=== PATIENT | male | born 2000 | race African-American/Black ===

== ENCOUNTER 2021-10-21 13:20 | Emergency (ER) | payer SELFPAY ==
--- NOTE | 2021-10-21 14:00 | EDPHYS ---
Physician Documentation [facility] Name: Leo Vazquez Age: 21 yrs Sex: Male : 2000 Arrival Date: 10/21/2021 Time: 13:24 Bed Waiting Private MD: ED Physician Dixon Britton HPI: 10/21 13:56 This 21 yrs old Black Male presents to ER via Ambulatory with complaints of Ear Pain. pm1 13:56 The patient presents with pain. The complaints affect the right ear. Onset: The pm1 symptoms/episode began/occurred yesterday. Modifying factors: the symptoms are aggravated by nothing. Associated signs and symptoms: Pertinent negatives: fever. Severity of symptoms: in the emergency department the symptoms are worse. The patient has not experienced similar symptoms in the past. The patient has not recently seen a physician. Patient went swimming yesterday and apparently got water stuck in his ear. Patient attempted to remove water from his right ear by using a Q-tip. Patient reports that he feels like his ear canal is swelling and has decreased hearing. Historical: - Allergies: 13:44 No Known Allergies; ss - Home Meds: 13:44 None [Active]; ss - PMHx: 13:44 None; ss - PSHx: 13:44 None; ss - Immunization history:: Adult Immunizations up to date, Client reports receiving the 2nd dose of the Covid vaccine. - Social history:: Smoking status: Reported history of juuling and/or vaping. ROS: 13:56 Constitutional: Negative for fever, chills, and weight loss. pm1 13:56 Cardiovascular: Negative for chest pain, palpitations, and edema, Respiratory: Negative for shortness of breath, cough, wheezing, and pleuritic chest pain. 13:56 ENT: Positive for ear pain, Negative for drainage from ear(s). 13:56 All other systems are negative. Exam: 13:56 Constitutional: This is a well developed, well nourished patient who is awake, alert, pm1 and in no acute distress. Head/Face: Normocephalic, atraumatic. 13:56 ENT: External ear(s): are unremarkable, Ear canal(s): cerumen impaction, that is moderate, occluding the right ear canal, swelling, of the right canal, Mild, TM's: not visable, because of cerumen, Examination of the other ear shows no obvious abnormality. 13:56 Neuro: Exam negative for Orientation: is normal, Motor: moves all fours. Vital Signs: 13:43 BP 130 / 71; Pulse 75; Resp 14; Temp 98.3(TE); Pulse Ox 100% on R/A; Weight 90.72 kg; ss Height 6 ft. 0 in. (182.88 cm); Pain 8/10; 13:43 Body Mass Index 27.12 (90.72 kg, 182.88 cm) ss MDM: 13:52 Patient medically screened. pm1 13:56 Data reviewed: vital signs. Data interpreted: Pulse oximetry: on room air is 100 %. pm1 Interpretation: normal. Counseling: I had a detailed discussion with the patient and/or guardian regarding: the historical points, exam findings, and any diagnostic results supporting the discharge/admit diagnosis, the need for outpatient follow up, an ENT specialist, a family practitioner, to return to the emergency department if symptoms worsen or persist or if there are any questions or concerns that arise at home. 14:05 ED course: [place] reviewed. pm1 Administered Medications: No medications were administered Disposition: 15:23 Co-signature as Attending Physician, Dixon Britton MD I agree with the assessment and kdr plan of care. Disposition Summary: 10/21/21 13:59 Discharge Ordered Location: Home pm1 Problem: new pm1 Symptoms: have improved pm1 Condition: Stable pm1 Diagnosis - Unspecified otitis externa, right ear pm1 Followup: pm1 - With: Emergency Department - When: As needed - Reason: Worsening of condition Followup: pm1 - With: Private Physician - When: 2 - 3 days - Reason: Recheck today's complaints, Continuance of care, Re-evaluation by your physician Discharge Instructions: - Discharge Summary Sheet pm1 - Ear Drops, Adult pm1 - Otitis Externa pm1 Forms: - Medication Reconciliation Form pm1 - Thank You Letter pm1 - Antibiotic Education pm1 - Prescription Opioid Use pm1 Prescriptions: - Hydrocortisone/neomycin/polymyxin otic suspension 10 mg (1%) / 3.5 mg (0.35%) / 10,000 units / 10 mL - instill 4 drop by OTIC route every 6 hours As needed; 10 milliliter; Refills: pm1 0, Product Selection Permitted - Tramadol 50 mg Oral Tablet - take 1 tablet by ORAL route every 8 hours as needed; 12 tablet; Refills: 0, pm1 Product Selection Permitted Signatures: Dixon Britton MD MD kdr Smirch, Shelby, EDOUARD RN ss Leo Fermin, FAMILY CENTERED SPECIALIST FAMILY CENTERED SPECIALIST pm1
--- NOTE | 2021-10-21 14:00 | ER ---
Nurse's Notes [facility] Name: Leo Vazquez Age: 21 yrs Sex: Male : 2000 Arrival Date: 10/21/2021 Time: 13:24 Bed Waiting Private MD: Diagnosis: Unspecified otitis externa, right ear Presentation: 10/21 13:43 Chief complaint: Patient states: R ear pain that began yesterday. Coronavirus screen: ss Client denies travel out of the [place] in the last 14 days. Ebola Screen: Patient denies exposure to infectious person. Patient denies travel to an Ebola-affected area in the 21 days before illness onset. Initial Sepsis Screen: Does the patient meet any 2 criteria? No. Patient's initial sepsis screen is negative. Does the patient have a suspected source of infection? No. Patient's initial sepsis screen is negative. Risk Assessment: Do you want to hurt yourself or someone else? Patient reports no desire to harm self or others. Onset of symptoms was October 20, 2021. 13:43 Method Of Arrival: Ambulatory ss 13:43 Acuity: JAYLIN 5 ss Historical: - Allergies: 13:44 No Known Allergies; ss - Home Meds: 13:44 None [Active]; ss - PMHx: 13:44 None; ss - PSHx: 13:44 None; ss - Immunization history:: Adult Immunizations up to date, Client reports receiving the 2nd dose of the Covid vaccine. - Social history:: Smoking status: Reported history of juuling and/or vaping. Screenin:55 Abuse screen: Denies threats or abuse. Denies injuries from another. Nutritional ss screening: No deficits noted. Tuberculosis screening: Never had TB. Fall Risk None identified. Assessment: 13:55 General: Appears in no apparent distress. comfortable, Behavior is calm, cooperative, ss Denies fever, feeling ill. Pain: Complains of pain in right ear Pain currently is 8 out of 10 on a pain scale. Quality of pain is described as aching, Is continuous. Neuro: Hobbs Agitation-Sedation Scale (RASS): 0 - Alert and Calm Level of Consciousness is awake, alert, obeys commands, Oriented to person, place, time, situation. Cardiovascular: Capillary refill < 3 seconds is brisk in bilateral fingers. Respiratory: Airway is patent Respiratory effort is even, unlabored, Respiratory pattern is regular, symmetrical. : Reports Muffled hearing in R ear. Pt states, "I have swimmers ear. It started yesterday, became worse this morning.". EENT: Nares are clear Oral mucosa is moist. Throat is clear. Derm: Skin is intact, is healthy with good turgor, Skin is dry, Skin is pink, warm \\T\\ dry. normal. Musculoskeletal: Range of motion: intact in all extremities, Swelling absent. Vital Signs: 13:43 BP 130 / 71; Pulse 75; Resp 14; Temp 98.3(TE); Pulse Ox 100% on R/A; Weight 90.72 kg; ss Height 6 ft. 0 in. (182.88 cm); Pain 8/10; 13:43 Body Mass Index 27.12 (90.72 kg, 182.88 cm) ED Course: 13:24 Patient arrived in ED. rg4 13:34 [facility]. pm1 13:34 Dixon Britton MD is Attending Physician. pm1 13:44 Triage completed. ss 13:44 Arm band placed on left wrist. ss 13:55 Evelyn Santana RN is Primary Nurse. 13:55 Patient has correct armband on for positive identification. Bed in low position. 13:55 No provider procedures requiring assistance completed. Patient did not have IV access ss during this emergency room visit. Administered Medications: No medications were administered Medication: 13:55 VIS not applicable for this client. Outcome: 13:55 Condition: good 13:55 Instructed on discharge instructions, follow up and referral plans. medication usage. 13:59 Discharge ordered by . pm1 14:07 Discharged to home ambulatory, with family. 14:07 Discharge instructions given to patient, family, Demonstrated understanding of instructions, follow-up care, medications, Prescriptions given X 2. 14:08 Patient left the ED. Signatures: Evelyn Santana RN RN Leo Fermin NP LEGUILLON DEBEADER pm1 Lety García rg4
[2021-10-21 14:29] VITALS: BP 130/71; TEMP 98.3; O2SAT 100
== END 2021-10-21 14:08 | disposition home or self-care (01) ==
LOC: ER 13:20
DX: H60.91 Unspecified otitis externa, right ear (principal)
CPT/HCPCS: 99282

== ENCOUNTER 2021-10-24 10:54 | Emergency (ER) | payer SELFPAY ==
--- NOTE | 2021-10-24 12:48 | ER ---
Nurse's Notes [facility] Name: Leo Vazquez Age: 21 yrs Sex: Male : 2000 Arrival Date: 10/24/2021 Time: 10:56 Bed Waiting Private MD: Diagnosis: Presentation: 10/24 11:12 Chief complaint: Patient states: Here a few days ago for R ear pain and dx with ear ss infection. Pt reports that the infection is getting worse. Pt states, "I refused to see a Nurse Practitioner and want to see a doctor.". Coronavirus screen: Client denies travel out of the [place] in the last 14 days. Ebola Screen: Patient denies exposure to infectious person. Patient denies travel to an Ebola-affected area in the 21 days before illness onset. Initial Sepsis Screen: Does the patient meet any 2 criteria? No. Patient's initial sepsis screen is negative. Does the patient have a suspected source of infection? No. Patient's initial sepsis screen is negative. Risk Assessment: Do you want to hurt yourself or someone else? Patient reports no desire to harm self or others. Onset of symptoms was October 21, 2021. 11:12 Method Of Arrival: Ambulatory ss 11:12 Acuity: JAYLIN 5 ss Historical: - Allergies: 11:14 No Known Allergies; ss - PMHx: 11:14 None; ss - PSHx: 11:14 None; ss - Immunization history:: Client reports receiving the 2nd dose of the Covid vaccine. - Social history:: Smoking status: Reported history of juuling and/or vaping. Vital Signs: 11:12 BP 158 / 112; Pulse 110; Resp 15; Temp 99.0(TE); Pulse Ox 100% on R/A; Weight 90.72 kg; ss Height 5 ft. 9 in. (175.26 cm); Pain 10/10; 11:12 Body Mass Index 29.53 (90.72 kg, 175.26 cm) ED Course: 10:56 Patient arrived in ED. as 10:59 Orly Nicole FNP is [facility] 7 10:59 Dixon Britton MD is Attending Physician. [facility] 11:14 Triage completed. ss 11:14 Arm band placed on left wrist. ss Administered Medications: No medications were administered Outcome: 12:47 Patient left the ED. ss Signatures: Janell Silveira Shelby, RN RN ss Orly Nicole, EMERGENCY MEDICAL TECHNICIAN EMERGENCY MEDICAL TECHNICIAN jh7
[2021-10-24 12:52] VITALS: BP 158/112; TEMP 99; O2SAT 100
== END 2021-10-24 12:47 | disposition left against medical advice (07) ==
LOC: ER 10:54
DX: Z02.9 Encounter for administrative examinations, unspecified (principal)

== ENCOUNTER 2021-12-26 08:09 | Emergency (ER) | payer SELFPAY ==
--- NOTE | 2021-12-26 09:35 | ER ---
Nurse's Notes [facility] Name: Leo Vazquez Age: 21 yrs Sex: Male : 2000 Arrival Date: 12/26/2021 Time: 08:12 Bed Waiting Private MD: Diagnosis: Acute pharyngitis, unspecified Presentation: 12/26 08:24 Chief complaint: Patient states: I started coughing, having a sore throat, and feverish bm7 last night and it is worse this morning. Coronavirus screen: Client presents with at least one sign or symptom that may indicate coronavirus-19. Standard/surgical mask placed on the client. Ebola Screen: No symptoms or risks identified at this time. Initial Sepsis Screen: Does the patient meet any 2 criteria? No. Patient's initial sepsis screen is negative. Does the patient have a suspected source of infection? No. Patient's initial sepsis screen is negative. Risk Assessment: Do you want to hurt yourself or someone else? Patient reports no desire to harm self or others. Onset of symptoms was December 25, 2021. 08:24 Method Of Arrival: Ambulatory 7 08:24 Acuity: JAYLIN 4 bm7 Triage Assessment: 08:26 General: Appears in no apparent distress. comfortable, Behavior is calm, cooperative, bm7 appropriate for age. Pain: Complains of pain in left aspect of posterior pharynx and right aspect of posterior pharynx. EENT: Oral mucosa is moist. Throat is reddened. Neuro: No deficits noted. Cardiovascular: No deficits noted. Respiratory: Reports cough that is non-productive, Airway is patent Respiratory effort is even, unlabored, Respiratory pattern is regular, symmetrical, Breath sounds are clear bilaterally. the patient has mild shortness of breath. GI: No deficits noted. No signs and/or symptoms were reported involving the gastrointestinal system. : No deficits noted. No signs and/or symptoms were reported regarding the genitourinary system. Derm: No deficits noted. No signs and/or symptoms reported regarding the dermatologic system. Musculoskeletal: No deficits noted. No signs and/or symptoms reported regarding the musculoskeletal system. Historical: - Allergies: 08:26 No Known Allergies; bm7 - Home Meds: 08: None [Active]; bm7 - PMHx: : None; bm7 - PSHx: 08:26 None; bm7 - Immunization history:: Adult Immunizations up to date, Client reports receiving the 2nd dose of the Covid vaccine, Client reports receiving the 1st dose of the Covid vaccine. - Social history:: Smoking status: Patient denies any tobacco usage or history of. Screenin:09 Abuse screen: Denies threats or abuse. Nutritional screening: No deficits noted. bm7 Tuberculosis screening: No symptoms or risk factors identified. Fall Risk None identified. Assessment: 10:09 Reassessment: No changes from previously documented assessment. bm7 Vital Signs: 08:24 BP 139 / 87; Pulse 84; Resp 18; Temp 98.8(TE); Pulse Ox 100% on R/A; Weight 90.72 kg bm7 (R); Height 5 ft. 9 in. (175.26 cm); Pain 5/10; 10:09 BP 128 / 76; Pulse 72; Resp 16; Pulse Ox 100% on R/A; Pain 0/10; bm7 08:24 Body Mass Index 29.53 (90.72 kg, 175.26 cm) 7 ED Course: 08:12 Patient arrived in ED. mr 08:15 Markie Serra PA is PHCP. kirby 08:16 Max Johnson DO is Attending Physician. [facility] 08:26 Triage completed. bm7 08:26 Arm band placed on left wrist. bm7 08:30 Patient has correct armband on for positive identification. bm7 08:30 Patient placed in waiting room, Patient notified of wait time. bm7 08:30 COVID swab sent to lab. Flu and/or RSV swab sent to lab. bm7 10:09 No provider procedures requiring assistance completed. Patient did not have IV access bm during this emergency room visit. Administered Medications: No medications were administered Medication: 10:09 VIS not applicable for this client. 7 Outcome: 09:34 Discharge ordered by . kirby 10:09 Discharged to home ambulatory, with family. bm7 10:09 Condition: good 10:09 Discharge instructions given to patient, family, Instructed on discharge instructions, follow up and referral plans. medication usage, Demonstrated understanding of instructions, follow-up care, medications, Prescriptions given X 1. 10:13 Patient left the ED. 7 Signatures: Mickail, Markie, PA PA Lucia Spann Brittany, RN RN bm7
--- NOTE | 2021-12-26 09:35 | EDPHYS ---
Physician Documentation [facility] Name: Leo Vazquez Age: 21 yrs Sex: Male : 2000 Arrival Date: 12/26/2021 Time: 08:12 Bed Waiting Private MD: ED Physician Max Johnson HPI: 12/26 08:29 This 21 yrs old Black Male presents to ER via Ambulatory with complaints of Sore Throat.m 08:29 The patient presents with sore throat. Onset: The symptoms/episode began/occurred jmm gradually, 1 day(s) ago. Modifying factors: The symptoms are alleviated by nothing, the symptoms are aggravated by nothing. Associated signs and symptoms: Pertinent positives: chills, cough. The patient has experienced similar episodes in the past. Historical: - Allergies: 08:26 No Known Allergies; bm7 - Home Meds: 08:26 None [Active]; bm7 - PMHx: 08:26 None; bm7 - PSHx: 08:26 None; bm7 - Immunization history:: Adult Immunizations up to date, Client reports receiving the 2nd dose of the Covid vaccine, Client reports receiving the 1st dose of the Covid vaccine. - Social history:: Smoking status: Patient denies any tobacco usage or history of. ROS: 08:29 Constitutional: Positive for body aches, chills. jmm 08:29 ENT: Positive for sore throat. 08:29 Respiratory: Positive for cough. 08:29 All other systems are negative. Exam: 08:29 Constitutional: This is a well developed, well nourished patient who is awake, alert, jmm and in no acute distress. Head/Face: atraumatic. Eyes: EOMI, no conjunctival erythema appreciated 08:29 Neck: Trachea midline, Supple Chest/axilla: Normal chest wall appearance and motion. Cardiovascular: Regular rate and rhythm. No edema appreciated Respiratory: Normal respirations, no respiratory distress appreciated Abdomen/GI: Non distended Back: Normal ROM Skin: General appearance color normal MS/ Extremity: Moves all extremities, no obvious deformities appreciated, no edema noted to the lower extremities Neuro: Awake and alert Psych: Behavior is normal, Mood is normal, Patient is cooperative and pleasant 08:29 ENT: Posterior pharynx: erythema, that is moderate, exudate, that is mild. Vital Signs: 08:24 BP 139 / 87; Pulse 84; Resp 18; Temp 98.8(TE); Pulse Ox 100% on R/A; Weight 90.72 kg bm7 (R); Height 5 ft. 9 in. (175.26 cm); Pain 5/10; 10:09 BP 128 / 76; Pulse 72; Resp 16; Pulse Ox 100% on R/A; Pain 0/10; bm7 08:24 Body Mass Index 29.53 (90.72 kg, 175.26 cm) bm7 MDM: 08:26 Patient medically screened. [facility] 09:33 Data reviewed: vital signs, nurses notes. Counseling: I had a detailed discussion with [facility] the patient and/or guardian regarding: the historical points, exam findings, and any diagnostic results supporting the discharge/admit diagnosis, lab results, the need for outpatient follow up, to return to the emergency department if symptoms worsen or persist or if there are any questions or concerns that arise at home. 12/26 08:28 Order name: Strep; Complete Time: 09:33 [facility] 12/26 08:28 Order name: Influenza Screen (a \\T\\ B); Complete Time: 09:33 [facility] 12/26 08:28 Order name: SARS-COV-2 RT PCR (Document "Date of Onset" if Symptomatic); Complete Time: [facility] 12/26 09:34 Order name: Throat Culture EDMS Administered Medications: No medications were administered Disposition: 22:43 Co-signature as Attending Physician, Max Johnson DO I agree with the assessment and ms3 plan of care. Disposition Summary: 12/26/21 09:34 Discharge Ordered Location: Home [facility] Condition: Stable [facility] Diagnosis - Acute pharyngitis, unspecified [facility] Followup: [facility] - With: Private Physician - When: 2 - 3 days - Reason: Recheck today's complaints, Continuance of care, Re-evaluation by your physician Discharge Instructions: - Discharge Summary Sheet [facility] - Pharyngitis [facility] Forms: - Medication Reconciliation Form [facility] - Work release form [facility] - Thank You Letter [facility] - Antibiotic Education [facility] - Prescription Opioid Use [facility] Prescriptions: - cefdinir 300 mg Oral capsule - take 1 capsule by ORAL route every 12 hours for 10 days; 20 capsule; Refills: jmm 0, Product Selection Permitted Signatures: Dispatcher [employer] Markie Ponce PA PA jmm Sims, Marcus, DO DO ms3 Bhavna Moeller, RN RN bm7
[2021-12-26 10:32] VITALS: TEMP 98.8; O2SAT 100
[2021-12-26 10:34] VITALS: BP 128/76
== END 2021-12-26 10:13 | disposition home or self-care (01) ==
LOC: ER 08:09
DX: J02.9 Acute pharyngitis, unspecified (principal); Z20.822 Contact with and (suspected) exposure to COVID-19
CPT/HCPCS: 87070; 87081; 87804; 99283; U0003

== ENCOUNTER 2023-12-12 13:53 | Emergency (ER) | payer BC ==
--- OUTSIDE RECORDS SUMMARY | 2023-12-12 13:58 | XMS REPORT | Continuity of Care Document ---
Author Name Unknown Address [address] [facility] [address] [place] [address] [facility] thconnect Address [address] [facility] [place] [address] Care Team Providers Care Customer Business Manager Name Role Phone FLORES PACHECO Primary Care Physician Unav ailable CHRETIEN_F Attending Clinician Unavailable MITCHELL CHUN Attending Clinician Unavailable MITCHELL CHUN Attending Clinician Unavailable CHRINDIRA_F Admitting Clinician Unavailable Payers Payer Name Policy Type Policy Number Effective Date Expirati on Date Source BCBS-ID: [facility] [id number] 2022 00:00:00 [facility] OUT OF STATE [id number] 2022 00:00:00 Problems Condition Name Condition Details Condition Category Status Onset Date Resolution Date Last Treatment Date Treating Clinician Comments Source Allergic rhinitis Allergic Rhinitis Problem Active 2022-04 00:00: 00 [facility] Allergies, Adverse Reactions, Alerts Allergy Name Allergy Type Status Severity Reaction(s) Onset Date Inactive Date Treating Clinician Comments Source NO KNOWN ALLERGIE S Drug Class Active [facility] Social History Social Habit Start Date Stop Date Quantity Comments Source Gender identity [facility] Ass[facility] At 2000 00:00:00 2000 00:00:00 [facility] Smoking Status Start Date Stop Date Source Former Smoker [facility] Tobacco smoking consumption unknown [facility] Medications Ordered Medication Name Filled Medication Name Start Date Stop Date Current Medication? Ordering Clinician Indication Dosage Frequency Signature (SIG) Comments Components Source ondansetron (ZOFRAN-ODT ) disintegrat ing tablet 4 mg 11-15 13:30: 00 11-15 13:29 :00 No 4mg 4 mg, Oral, ONCE, 1 dose, On Fri11/15/22 at 0830, [facility] pantoprazol e (PROTONIX) EC tablet 40 mg 11-15 12:45: 00 11-15 13:29 :00 No 40mg 40 mg, Oral, ONCE, 1 dose, On Fri11/15/22 at 0745, [facility] ondansetron 4 mg disintegrat ing tablet 11-15 00:00: 00 11-26 04:59 :00 No [id number] 4mg Take 1 tablet by mouth every 8 (eight) hours as needed for Nausea and Vomiting (N/V) for up to 10 days. [facility] Vital Signs Vital Name Observation Time Observation Value Comments S ource BP Systolic 2023-02-11 00:00:00 132 mm[Hg] [facility] Body Weight 2023-02-11 00:00:00 3238.4 [oz_av] [facility] Height 2023-02-11 00:00:00 69 [in_i] [facility] BP Diastolic 2023-02-11 00:00:00 85 mm[Hg] [facility] BMI (Body Mass Index) 2023-02-11 00:00:00 29.9 kg/m2 [facility] Systolic blood pressure 2022-11-15 12:23:00 149 mm[Hg] [facility] Diastolic blood pressure 2022-11-15 12:23:00 87 mm[Hg] [facility] Heart rate 2022-11-15 12:23:00 75 /min [facility] Body temperature 2022-11-15 12:23:00 36.72 Kasia [facility] Respiratory rate 2022-11-15 12:23:00 16 /min [facility] Body height 2022-11-15 12:23:00 175.3 cm [facility] Body weight 2022-11-15 12:23:00 86.183 kg [facility] BMI 2022-11-15 12:23:00 28.06 kg/m2 [facility] Oxygen saturation in Arterial blood by Pulse oximetry 2022-11-15 12:23:00 99 /min [place] [facility] Procedures Procedure Date / Time Performed Performing Clinicia n Source RAPID INFLUENZA A/B 2022-11-15 13:26:00 Shay Chun [facility] COVID-19 (ID NOW RAPID TESTING) 2022-11-15 13:26:00 Mitchell Chun [facility] ASSIGNMENT OF BENEFITS 2022-11-15 13:03:52 Docto r Unassigned, [place] [facility] NOTICE OF PRIVACY PRACTICES 2022-11-15 12:22:47 Doctor Unassigned, [place] [facility] CONSENT/REFUSAL FOR DIAGNOSIS AND TREATMENT 2022-11-15 12:18:50 Doctor Unassigned, [place] [facility] Plan of Care Planned Activity Planned Date Details Comments Source Instructions [facility] Encounters Start Date/Time End Date/Time Encounter Type Admission Type Attending Clinicians Care Facility Care Department Encounter ID Source 2023-05-16 00:00:00 2023-05-16 00:00:00 Outpatient CHRETIEN_F [facility] [id number] [facility] 2023-04-10 00:00:00 2023-04-10 00:00:00 Outpatient CHRETIEN_F [facility] [id number] [facility] 2023-03-06 00:00:00 2023-03-06 00:00:00 Outpatient CHRETIEN_F [facility] [id number] [facility] 2023-02-11 00:00:00 2023-02-11 00:00:00 Outpatient CHRETIEN_F [facility] [id number] [facility] 2023-02-11 00:00:00 2023-02-11 00:00:00 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 [facility] [id number] [facility] 2023-02-10 00:00:00 2023-02-10 00:00:00 Outpatient MART_F [facility] [id number] [facility] 2022-11-15 07:24:00 2022-11-15 09:50:00 Emergency X MITCHELL CHUN [facility] ERT [id number] [facility] 2022-11-15 07:24:00 2022-11-15 09:50:00 Emergency Mitchell Chun [facility] [id number] [facility] Notes Date/Time Note Provider Source 2022-11-15 09:48:00 Formatting of this n ote might be different from the original. Pt discharged with diagnosis of N/V and HTN. Printed and verbal instructions reviewed with and given to patient. Prescriptions given x 1. Pt verbalized understanding of teaching, medications, and recommended follow-up. Denies questions or concerns at this time. Pt ambulatory at discharge. Appears in no apparent distress. No ataxia noted. Katy Stark RN [facility] 2022-11-15 07:22:57 Formatting of this n ote might be different from the original. Patient to ED for n/v/d since 11-12 last night. He thinks its from the pizza he had at 7 pm yesterday. Denies abdominal pain. [facility] 2022-11-15 07:18:00 Formatting of this n ote is different from the original. [facility] Emergency Department Note Patient Name: Woodrow Villeda Date of : 2000 22 year old male Treatment Room: [place] [address] Primary Care Physician: Flores Pacheco Patient Escorted by: Self [9] Mode of Arrival: Personal means [1] EMS Treatment Prior to ED Arrival: Travel and Exposure Screening: Symptoms Does patient have any of these symptoms?: (not recorded) Exposure Screening Has patient had contact with someone with a communicable disease in the last month?: (not recorded) Diseases exposed to:: (not recorded) Is Patient ?: (not recorded) Exposure Date: (not recorded) Chief Complaint: Chief Complaint Patient presents with Vomiting Diarrhea History of Present Illness: 22-year-old male with no significant medical history comes in with nausea vomiting and diarrhea since last night. Patient thinks it might be in the pizza he ate at 6 or 7:00. Of note his girlfriend has flulike illnesses and his son had a viral infection. Patient denies any abdominal pain, slight nausea now no fever. Vapes, non-smoker, rare drinker denies drug use. 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 No pertinent past medical history. Allergies: No Known Allergies Past Social History: Substance & Sexual Activity No substance use or sexual activity history on file. Past Surgical History: History reviewed. No pertinent surgical history. Review of Systems: Review of Systems Constitutional: Negative for fatigue and fever. HENT: Negative. Eyes: Negative. Respiratory: Negative. Cardiovascular: Negative. Gastrointestinal: Positive for diarrhea, nausea and vomiting. Negative for abdominal pain. Genitourinary: Negative. Musculoskeletal: Negative. Skin: Negative. Neurological: Negative. All other systems reviewed and are negative. Physical Exam: ED Triage Vitals [11/15/22 0723] Weight 86.2 kg (190 lb) Actual or estimated Height 1.753 m (5' 9") BP (!) 149/87 Pulse 75 Resp 16 Temp 36.7 ?C (98.1 ?F) Temp src SpO2 99 % Measured on Physical Exam Vitals and nursing note reviewed. Constitutional: Comments: Well-appearing, no acute distress, alert and interactive HENT: Head: Normocephalic. Right Ear: External ear normal. Left Ear: External ear normal. Nose: Nose normal. Mouth/Throat: Mouth: Mucous membranes are moist. Pharynx: Oropharynx is clear. No oropharyngeal exudate or posterior oropharyngeal erythema. Eyes: Extraocular Movements: Extraocular movements intact. Cardiovascular: Rate and Rhythm: Normal rate and regular rhythm. Pulses: Normal pulses. Heart sounds: Normal heart sounds. Pulmonary: Effort: Pulmonary effort is normal. Breath sounds: Normal breath sounds. Abdominal: General: There is no distension. Palpations: Abdomen is soft. Tenderness: There is no abdominal tenderness. There is no right CVA tenderness or left CVA tenderness. Musculoskeletal: General: Normal range of motion. Cervical back: Normal range of motion. No rigidity or tenderness. Skin: General: Skin is warm. Capillary Refill: Capillary refill takes less than 2 seconds. Neurological: General: No focal deficit present. Mental Status: He is alert and oriented to person, place, and time. Psychiatric: Mood and Affect: Mood normal. Behavior: Behavior normal. Thought Content: Thought content normal. Judgment: Judgment normal. Radiology: No orders to display Lab Results: Lab Results - No data to display EKG: If EKG completed, see Procedure Note. Orders and Treatments: No orders of the defined types were placed in this encounter. No orders of the defined types were placed in this encounter. First Provider Eval: ED Events Date/Time Event User Comments 11/15/22730 Medical Screening Begins MITCHELL CHUN MD -- 11/15/22730 First Provider Evaluation MITCHELL CHUN MD -- ED COURSE ED Course as of 11/15/22 0935 FriNov 15, 2022 0935 Patient reassessed, states he feels improved with the medications, states he feels well enough to go home, requesting a work note and to send something for nausea to his pharmacy. [CD] 0914 SARS-CoV-2 Rapid ID NOW: Not Detected [CD] 0914 Rapid Influenza B: Negative [CD] 0914 Rapid Influenza A: Negative [CD] 0914 22-year-old male with no significant medical history comes in with nausea vomiting and diarrhea since last night. Patient thinks it might be in the pizza he ate at 6 or 7:00. Of note his girlfriend has flulike illnesses and his son had a viral infection. Patient denies any abdominal pain, slight nausea now no fever. Vapes, non-smoker, rare drinker denies drug use. Denies recent travel Differential includes viral, gastroenteritis, other viral infection. Plan is symptom control, monitor and reevaluation. Patient agrees with plan [CD] ED Course User Index [CD] Mitchell Chun MD Diagnosis/Impression as of 11/15/22 0935 Nausea and vomiting, unspecified vomiting type Hypertension, unspecified type Procedures: Procedures MDM: Medical Decision Making See ED course for MDM Problems Addressed: Hypertension, unspecified type: self-limited or minor problem Nausea and vomiting, unspecified vomiting type: acute illness or injury Amount and/or Complexity of Data Reviewed External Data Reviewed: notes. Labs: ordered. Decision-making details documented in ED Course. Risk Prescription drug management. Flowsheet Documentation: Scoring Tools: No data recorded Disposition/Condition: ED Disposition None Discharge Medications: Patient's Medications No medications on file Follow-up: Electronically signed by: Mitchell Chun MD 11/15/22 0940 [facility]
--- NOTE | 2023-12-12 14:25 | EDPHYS ---
Physician Documentation [facility] Name: Leo Vazquez Age: 23 yrs Sex: Male : 2000 Arrival Date: 12/12/2023 Time: 13:53 Bed IW1 Private MD: ED Physician Anthony Thibodeaux HPI: 12/11 14:47 This 23 yrs old Black Male presents to ER via Ambulatory with complaints of Redness of rn Eye. 14:47 The patient is experiencing redness, tearing, The patient sustained None. to both eyes, rn caused by an unknown mechanism. Onset: The symptoms/episode began/occurred 2 day(s) ago. Severity of symptoms: At their worst the symptoms were mild in the emergency department the symptoms are unchanged. The patient has experienced similar episodes in the past. Denies injury or splash of chemical, no high-speed injury either.. Historical: - Allergies: 14:10 No Known Allergies; kc6 - Home Meds: 14:10 None [Active]; kc6 - PMHx: 14:10 None; kc6 - PSHx: 14:10 None; kc6 - Immunization history:: Adult Immunizations up to date. - Infectious Disease History:: Denies. - Social history:: Smoking status: Reported history of juuling and/or vaping. - Family history:: not pertinent. - Hospitalizations: : No recent hospitalization is reported. ROS: 14:47 Constitutional: Negative for fever, chills, and weight loss, Eyes: Positive for rn bilateral eye redness and clear watery discharge Exam: 14:47 Constitutional: This is a well developed, well nourished patient who is awake, alert, rn and in no acute distress. Eyes: Bilateral scleral and conjunctival injection. No foreign body. Pupils equally round and reactive to light. No periorbital swelling or erythema Vital Signs: 14:09 BP 131 / 82; Pulse 81; Resp 16 S; Temp 98.7(O); Pulse Ox 99% on R/A; Weight 90.72 kg kc6 (R); Height 5 ft. 9 in. (R); Pain 4/10; 14:09 Body Mass Index 29.53 (90.72 kg, 175.26 cm) [facility] 14:09 Pain Scale: Adult kc MDM: 13:57 Patient medically screened. rn 14:47 Differential diagnosis: Data reviewed: vital signs, nurses notes, and as a result, I rn will discharge patient. Counseling: I had a detailed discussion with the patient and/or guardian regarding the historical points, exam findings, and any diagnostic results supporting the discharge/admit diagnosis, the need for outpatient follow up, to return to the emergency department if symptoms worsen or persist or if there are any questions or concerns that arise at home. Special discussion: I discussed with the patient/guardian in detail that at this point there is no indication for admission to the hospital. It is understood, however, that if the symptoms persist or worsen the patient needs to return immediately for re-evaluation. 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
--- NOTE | 2023-12-12 14:25 | ER ---
Nurse's Notes [facility] Name: Leo Vazquez Age: 23 yrs Sex: Male : 2000 Arrival Date: 12/12/2023 Time: 13:53 Bed IW1 Private MD: Diagnosis: Unspecified acute conjunctivitis, bilateral Presentation: 12/11 14:09 Chief complaint: Patient states: EDGAR eye redness since Friday. denies being around [facility] anyone sick. Coronavirus screen: At this time, the client does not indicate any symptoms associated with coronavirus-19. Ebola Screen: No symptoms or risks identified at this time. Initial Sepsis Screen: Does the patient meet any 2 criteria? No. Patient's initial sepsis screen is negative. Does the patient have a suspected source of infection? No. Patient's initial sepsis screen is negative. Risk Assessment: Do you want to hurt yourself or someone else? Patient reports no desire to harm self or others. Onset of symptoms was December 12, 2023. 14:09 Method Of Arrival: Ambulatory [facility] 14:09 Acuity: JAYLIN 4 kc6 Triage Assessment: 14:10 General: Appears in no apparent distress. comfortable, well groomed, well developed, 6 Behavior is calm, cooperative, appropriate for age. Pain: Complains of pain in right eye and left eye. Historical: - Allergies: 14:10 No Known Allergies; kc6 - Home Meds: 14:10 None [Active]; kc6 - PMHx: 14:10 None; kc6 - PSHx: 14:10 None; kc6 - Immunization history:: Adult Immunizations up to date. - Infectious Disease History:: Denies. - Social history:: Smoking status: Reported history of juuling and/or vaping. - Family history:: not pertinent. - Hospitalizations: : No recent hospitalization is reported. Screenin:30 [facility] ED Fall Risk Assessment (Adult) History of falling in the last 3 months, ap3 including since admission No falls in past 3 months (0 pts) Confusion or Disorientation No (0 pts) Intoxicated or Sedated No (0 pts) Impaired Gait No (0 pts) Mobility Assist Device Used No (0 pt) Altered Elimination No (0 pt) Score/Fall Risk Level 0 - 2 = Low Risk Oriented to surroundings, Maintained a safe environment, Educated pt \T\ family on fall prevention, incl call for assistance when getting out of bed, Assessed \T\ reinforced patient's understanding of fall precautions, Hourly rounding (assess needs \T\ fall precautionary measures) done, Used ambulatory aids as needed (educated on \T\ assisted with), Used gait belt as appropriate. Abuse screen: Denies threats or abuse. Nutritional screening: No deficits noted. Tuberculosis screening: No symptoms or risk factors identified. Vital Signs: 14:09 BP 131 / 82; Pulse 81; Resp 16 S; Temp 98.7(O); Pulse Ox 99% on R/A; Weight 90.72 kg kc6 (R); Height 5 ft. 9 in. (R); Pain 4/10; 14:09 Body Mass Index 29.53 (90.72 kg, 175.26 cm) kc6 14:09 Pain Scale: Adult [facility] ED Course: 13:57 Patient arrived in ED. mr 13:57 Anthony Thibodeaux MD is Attending Physician. rn 14:10 Triage completed. kc6 14:10 Arm band placed on. kc6 14:31 Provided Education on: discharge instructions. ap3 14:31 Patient has correct armband on for positive identification. ap3 14:31 No provider procedures requiring assistance completed. Patient did not have IV access ap3 during this emergency room visit. Administered Medications: No medications were administered Medication: 14:31 VIS not applicable for this client. ap3 Outcome: 14:25 Discharge ordered by . rn 14:31 Discharged to home ambulatory, ap3 14:31 Condition: good 14:31 Discharge instructions given to patient, Instructed on discharge instructions, Demonstrated understanding of instructions, follow-up care, medications, Prescriptions given X 1, 14:31 Patient left the ED. ap3 Signatures: Lucia Gonsales, Reg Reg mr Anthony Thibodeaux MD MD rn Prokisch, Amanda, RN RN ap3 Bette Ordonez RN RN kc6
[2023-12-12 14:36] VITALS: BP 131/82; TEMP 98.7; O2SAT 99
== END 2023-12-12 14:31 | disposition home or self-care (01) ==
LOC: ER 13:53
DX: H10.33 Unspecified acute conjunctivitis, bilateral (principal)
CPT/HCPCS: 99283